=== PATIENT | male | born 1960 | race Caucasian/White ===

== ENCOUNTER 2017-11-05 09:18 | Inpatient (IN) | payer MEDICAID ==
[~2017-11-05] VITALS: Ht 172.7 cm; Wt 113.0 kg
[~2017-11-05 09:18] MED LIST: ALBU0.63 NEB; ALBU18HF; ALBU2.5V; ALBU6.7H INH; ALEN70TA5; ATOV750O; AZAT50TA9; CHOL100015 PO; DAPT500V6 IV; ERGO500017; ERTA1VIA IV; FLUC200T PO; FLUT1DIS3; FLUT1DIS5 IH; FLUT50DI; HYDR200T PO; METF10002 PO; METF500T4 PO; MORP15TA PO; MORP15TA3 PO; OXYC-307 PO; OXYC10TA6 PO; PRAV10TA2 PO; PRED5TAB; PRED5TAB PO; RANI300C PO; RANI300T; TIOT18CA; TIOT18CA INH
[2017-11-05] MEDS ORDERED: CEFTRIAXONE PMX 1GM/50ML 50 ML ONE (10:49)
[2017-11-05] MEDS ORDERED: HYDROmorphone 2 MG/ML, 1ML ONE ×2 (10:50→11:25)
[2017-11-05] MEDS: ALBUTEROL/IPRATROPIUM 2.5MG/0.5MG, 3 ML NPPB SCH ×4 (10:52→23:59)
[2017-11-05] MEDS ORDERED: ALBUTEROL/IPRATROPIUM 2.5MG/0.5MG, 3 ML ONE (10:53)
[2017-11-05] MEDS ORDERED: HYDROmorphone 2 MG/ML, 1ML IVPush PRN (11:00)
[2017-11-05] MEDS ORDERED: HYDROmorphone 1 MG/ML, 1ML IVPush PRN (11:00)
[2017-11-05 11:17] LABS: MEAN CORPUSCULAR HEMOGLOBIN 30.2 pg (27.5-34.5); MEAN CORPUSCULAR HGB CONC 32.9 g/dL (33.2-36.2); MEAN CORPUSCULAR VOLUME 91.9 fL (81-97); MEAN PLATELET VOLUME 10.4 fL (7.4-10.4); PLATELET COUNT 130 x10^3/uL (130-400); RED BLOOD COUNT 5.15 x10^6/uL (4.38-5.82); RED CELL DISTRIBUTION WIDTH 14.3 % (9.4-14.8)
[2017-11-05 11:26] LABS: ALBUMIN 2.8 g/dL (3.4-5.0); ANION GAP 9 mmol/L (5-15); CALCIUM 9.7 mg/dL (8.5-10.1); CHLORIDE 95 mmol/L (98-107)
[2017-11-05 11:30] LABS: ALANINE AMINOTRANSFERASE 24 U/L (12-78); ALKALINE PHOSPHATASE 152 U/L (45-117); BILIRUBIN,TOTAL 2.4 mg/dL (0.2-1.0); CREATININE 1.13 mg/dL (0.7-1.3); TOTAL PROTEIN 7.4 g/dL (6.4-8.2)
[2017-11-05 11:54] LABS: MD YES
[2017-11-05 11:59] LABS: BAND#(MANUAL) 0.92 x10^3/uL; BANDS%(MANUAL) 5 % (0-7); LYMPH#(MANUAL) 0.55 x10^3/uL (1-3.4); LYMPHS% (MANUAL) 3 % (22-44); MONOS#(MANUAL) 1.46 x10^3/uL (0.3-2.7); MONOS% (MANUAL) 8 % (2-9); SEG#(MANUAL) 15.37 x10^3/uL (1.8-6.8); SEGS% (MANUAL) 84 % (42-75)
[2017-11-05 12:00] LABS: <RBC MORPHOLOGY> NORMAL
[2017-11-05] MEDS ORDERED: CEFTRIAXONE PMX 1GM/50ML 50 ML IVPB ONE (12:00)
[2017-11-05] MEDS ORDERED: SODIUM CHLORIDE FLUSH 10ML SYR IVF ONE (12:00)
[2017-11-05 12:03] LABS: <PLATELET ESTIMATE> ADEQUATE; LARGE PLATELETS 1+
[2017-11-05 12:13] LABS: RAPID INFLUENZA A Negative (Negative); RAPID INFLUENZA B Negative (Negative)
[2017-11-05] MEDS ORDERED: ACETAMINOPHEN 325 MG TABLET PO PRN (13:00)
[2017-11-05] MEDS ORDERED: ACETAMINOPHEN 500 MG TABLET ONE (13:04)
[2017-11-05] MEDS ORDERED: ONDANSETRON 2MG/ML, 2ML IVPush PRN (14:00)
[2017-11-05] MEDS ORDERED: ACETAMINOPHEN 325 MG TABLET PO ONE (14:00)
[2017-11-05] MEDS ORDERED: ONDANSETRON ODT 4 MG PO PRN (14:00)
[2017-11-05 14:19] VITALS: BP 99/66
[2017-11-05] MEDS ORDERED: AZITHROMYCIN 500 MG in SODIUM CHLORIDE 0.9% 250 ML IV SCH (14:30)
[2017-11-05] MEDS ORDERED: ACETAMINOPHEN 500 MG TABLET PO ONE (14:30)
[2017-11-05] MEDS: NICOTINE 21 MG/24 HR PATCH.TD24 TD SCH (14:43)
[2017-11-05] MEDS: methylPREDNISolone SOD SUCC 125 MG/2 ML IVPush SCH ×2 (14:44→21:58)
[2017-11-05] MEDS: SODIUM CHLORIDE 0.9% 1,000 ML IV SCH (14:45)
[2017-11-05] MEDS: ENOXAPARIN 40 MG/0.4 ML SQ SCH (14:46)
[2017-11-05] MEDS: OXYcodone IR 5MG TABLET PO PRN ×2 (15:02→23:24)
[2017-11-05 18:35] VITALS: BP 116/79
[2017-11-05] MEDS: morphine SULFATE 15 MG TAB.IR PO SCH (21:59)
[2017-11-05] MEDS: INSULIN LISPRO 100 UNITS/ML, PEN SQ-INSULIN SCH (21:59)
[2017-11-06 03:08] VITALS: BP 108/68
[2017-11-06] MEDS: SODIUM CHLORIDE 0.9% 1,000 ML IV SCH (04:06)
[2017-11-06 05:30] LABS: ALANINE AMINOTRANSFERASE 21 U/L (12-78); ALBUMIN 2.2 g/dL (3.4-5.0); ANION GAP 8 mmol/L (5-15); CALCIUM 8.8 mg/dL (8.5-10.1); CHLORIDE 99 mmol/L (98-107); CHOLESTEROL, TOTAL 107 mg/dL (140-239); CREATININE 1.02 mg/dL (0.7-1.3)
[2017-11-06 05:33] LABS: ALKALINE PHOSPHATASE 141 U/L (45-117); BILIRUBIN,TOTAL 0.9 mg/dL (0.2-1.0); CHOL/HDL RATIO 4.9; HDL CHOL % 21 % (26-37); HDL CHOLESTEROL (DIRECT) 22 mg/dL (40-60); LDL CHOLESTEROL,CALCULATED 68 mg/dL (54-169); LDL/HDL RATIO 3.1 (0.5-3.0); TOTAL PROTEIN 6.8 g/dL (6.4-8.2); TRIGLYCERIDES 85 mg/dL (50-200); VLDL CHOLESTEROL 17 mg/dL (0-25)
[2017-11-06 06:01] LABS: BASOPHILS % (AUTO) 0 % (0-1); EOSINOPHILS % (AUTO) 0 % (1-7); LYMPHOCYTES # (AUTO) 0.25 x10^3/uL (1-3.4); LYMPHOCYTES % (AUTO) 2 % (22-44); MD NO; MEAN CORPUSCULAR HEMOGLOBIN 30.7 pg (27.5-34.5); MEAN CORPUSCULAR HGB CONC 33.3 g/dL (33.2-36.2); MEAN CORPUSCULAR VOLUME 92.1 fL (81-97); MEAN PLATELET VOLUME 10.6 fL (7.4-10.4); MONOCYTES # (AUTO) 0.65 x10^3/uL (0.2-0.8); MONOCYTES % (AUTO) 5 % (2-9); NEUTROPHILS # (AUTO) 12.52 x10^3/uL (1.8-6.8); NEUTROPHILS % (AUTO) 93 % (42-75); PLATELET COUNT 130 x10^3/uL (130-400); RED BLOOD COUNT 4.59 x10^6/uL (4.38-5.82); RED CELL DISTRIBUTION WIDTH 13.8 % (9.4-14.8)
[2017-11-06] MEDS: ALBUTEROL/IPRATROPIUM 2.5MG/0.5MG, 3 ML NPPB SCH ×4 (06:57→20:00)
[2017-11-06] MEDS: methylPREDNISolone SOD SUCC 125 MG/2 ML IVPush SCH ×3 (07:55→23:10)
[2017-11-06] MEDS: INSULIN LISPRO 100 UNITS/ML, PEN SQ-INSULIN SCH ×4 (07:56→21:23)
[2017-11-06] MEDS: OXYcodone IR 5MG TABLET PO PRN ×2 (07:57→17:01)
[2017-11-06] MEDS: TEMPLATE NON-FORMULARY MED. (Fluticasone/Salmeterol** (Advair 500-50 Diskus**) 1 PUFF) IH SCH (08:02)
[2017-11-06] MEDS: TEMPLATE NON-FORMULARY MED. (Tiotropium Bromide** (Spiriva**) 18 MCG) INH SCH (08:02)
[2017-11-06] MEDS: morphine SULFATE 15 MG TAB.IR PO SCH ×2 (08:02→21:23)
[2017-11-06 08:51] VITALS: BP 98/52
[2017-11-06] MEDS ORDERED: TEMPLATE NON-FORMULARY MED. (Ranitidine Hcl** 300 MG) PO SCH (09:00)
[2017-11-06] MEDS ORDERED: CEFTRIAXONE PMX 1GM/50ML 50 ML IV SCH (11:00)
[2017-11-06] MEDS: NYSTATIN 500,000 UNITS/5 ML UDC PO SCH ×3 (11:58→21:23)
[2017-11-06 13:21] VITALS: BP 89/51
[2017-11-06] MEDS ORDERED: VANCOMYCIN PER PHARMACY MC PRN (14:30)
[2017-11-06] MEDS ORDERED: PHARMACOKINETIC CONSULTATION MC ONE (14:30)
[2017-11-06] MEDS ORDERED: PHARMACOKINETIC MONITORING MC PRN (14:30)
[2017-11-06] MEDS: NICOTINE 21 MG/24 HR PATCH.TD24 TD SCH (14:44)
[2017-11-06] MEDS: ENOXAPARIN 40 MG/0.4 ML SQ SCH (15:00)
[2017-11-06] MEDS: PIPERACILLIN/TAZO/PMX 4.5GM 100 ML IV SCH ×2 (15:33→23:10)
[2017-11-06] MEDS: VANCOMYCIN 2,000 MG in SODIUM CHLORIDE 0.9% 500 ML IV SCH (16:57)
[2017-11-06 21:10] VITALS: BP 120/71
[2017-11-07 01:09] VITALS: BP 96/55
[2017-11-07] MEDS ORDERED: CALCIUM CARBONATE 500 MG TAB.CHEW PO PRN (01:30)
[2017-11-07] MEDS: OXYcodone IR 5MG TABLET PO PRN ×2 (01:49→12:43)
[2017-11-07 04:59] LABS: BASOPHILS % (AUTO) 0 % (0-1); EOSINOPHILS % (AUTO) 0 % (1-7); LYMPHOCYTES # (AUTO) 0.28 x10^3/uL (1-3.4); LYMPHOCYTES % (AUTO) 2 % (22-44); MD NO; MEAN CORPUSCULAR HEMOGLOBIN 30.6 pg (27.5-34.5); MEAN CORPUSCULAR VOLUME 92.7 fL (81-97); MEAN PLATELET VOLUME 10.6 fL (7.4-10.4); MONOCYTES # (AUTO) 0.49 x10^3/uL (0.2-0.8); MONOCYTES % (AUTO) 4 % (2-9); NEUTROPHILS # (AUTO) 10.94 x10^3/uL (1.8-6.8); NEUTROPHILS % (AUTO) 93 % (42-75); PLATELET COUNT 153 x10^3/uL (130-400); RED BLOOD COUNT 4.31 x10^6/uL (4.38-5.82); RED CELL DISTRIBUTION WIDTH 14.4 % (9.4-14.8)
[2017-11-07 05:13] LABS: ANION GAP 6 mmol/L (5-15); CALCIUM 9.5 mg/dL (8.5-10.1); CHLORIDE 99 mmol/L (98-107)
[2017-11-07 05:18] LABS: CREATININE 1.22 mg/dL (0.7-1.3)
[2017-11-07] MEDS: PIPERACILLIN/TAZO/PMX 4.5GM 100 ML IV SCH ×3 (06:28→22:34)
[2017-11-07] MEDS: NYSTATIN 500,000 UNITS/5 ML UDC PO SCH ×4 (06:28→20:50)
[2017-11-07] MEDS: ALBUTEROL/IPRATROPIUM 2.5MG/0.5MG, 3 ML NPPB SCH ×4 (07:00→20:15)
[2017-11-07] MEDS: PANTOPROZOLE 40MG TABLET PO SCH (07:30)
[2017-11-07 07:53] VITALS: BP 117/70
[2017-11-07] MEDS: methylPREDNISolone SOD SUCC 125 MG/2 ML IVPush SCH ×2 (08:53→16:26)
[2017-11-07] MEDS: INSULIN LISPRO 100 UNITS/ML, PEN SQ-INSULIN SCH ×4 (08:53→20:51)
[2017-11-07] MEDS: TEMPLATE NON-FORMULARY MED. (Fluticasone/Salmeterol** (Advair 500-50 Diskus**) 1 PUFF) IH SCH (09:00)
[2017-11-07] MEDS: TEMPLATE NON-FORMULARY MED. (Tiotropium Bromide** (Spiriva**) 18 MCG) INH SCH (09:00)
[2017-11-07] MEDS: morphine SULFATE 15 MG TAB.IR PO SCH ×2 (12:17→20:50)
[2017-11-07] MEDS: VANCOMYCIN 2,000 MG in SODIUM CHLORIDE 0.9% 500 ML IV SCH (12:44)
[2017-11-07 13:01] VITALS: BP 123/68
[2017-11-07] MEDS: NICOTINE 21 MG/24 HR PATCH.TD24 TD SCH (14:53)
[2017-11-07] MEDS: ENOXAPARIN 40 MG/0.4 ML SQ SCH (15:00)
[2017-11-07 19:42] VITALS: BP 123/76
[2017-11-07] MEDS: metFORMIN 500 MG TABLET PO SCH (20:50)
[2017-11-07] MEDS ORDERED: INSULIN LISPRO 100 UNITS/ML, PEN SQ-INSULIN ONE (23:00)
[2017-11-08 00:29] VITALS: BP 112/61
[2017-11-08] MEDS: methylPREDNISolone SOD SUCC 125 MG/2 ML IVPush SCH ×3 (00:32→17:23)
[2017-11-08] MEDS: OXYcodone IR 5MG TABLET PO PRN ×4 (00:32→20:38)
[2017-11-08 06:11] LABS: ANION GAP 8 mmol/L (5-15); CHLORIDE 100 mmol/L (98-107); CREATININE 1.09 mg/dL (0.7-1.3)
[2017-11-08 06:13] LABS: MEAN CORPUSCULAR HEMOGLOBIN 30.4 pg (27.5-34.5); MEAN CORPUSCULAR HGB CONC 32.5 g/dL (33.2-36.2); MEAN CORPUSCULAR VOLUME 93.4 fL (81-97); MEAN PLATELET VOLUME 10.3 fL (7.4-10.4); PLATELET COUNT 167 x10^3/uL (130-400); RED BLOOD COUNT 4.37 x10^6/uL (4.38-5.82); RED CELL DISTRIBUTION WIDTH 14.9 % (9.4-14.8)
[2017-11-08] MEDS: NYSTATIN 500,000 UNITS/5 ML UDC PO SCH ×4 (06:20→20:37)
[2017-11-08] MEDS: PIPERACILLIN/TAZO/PMX 4.5GM 100 ML IV SCH ×3 (06:21→23:01)
[2017-11-08 06:35] LABS: BASOPHILS % (AUTO) 0 % (0-1); EOSINOPHILS # (AUTO) 0.02 x10^3/uL (0-0.4); EOSINOPHILS % (AUTO) 0 % (1-7); LYMPHOCYTES # (AUTO) 0.29 x10^3/uL (1-3.4); LYMPHOCYTES % (AUTO) 3 % (22-44); MD SCAN; MONOCYTES # (AUTO) 0.04 x10^3/uL (0.2-0.8); MONOCYTES % (AUTO) 0 % (2-9); NEUTROPHILS # (AUTO) 8.48 x10^3/uL (1.8-6.8); NEUTROPHILS % (AUTO) 96 % (42-75)
[2017-11-08 07:30] VITALS: BP 127/72
[2017-11-08] MEDS: TEMPLATE NON-FORMULARY MED. (Fluticasone/Salmeterol** (Advair 500-50 Diskus**) 1 PUFF) IH SCH (08:03)
[2017-11-08] MEDS: TEMPLATE NON-FORMULARY MED. (Tiotropium Bromide** (Spiriva**) 18 MCG) INH SCH (08:04)
[2017-11-08] MEDS: ALBUTEROL/IPRATROPIUM 2.5MG/0.5MG, 3 ML NPPB SCH ×4 (08:23→20:09)
[2017-11-08] MEDS: PANTOPROZOLE 40MG TABLET PO SCH (08:45)
[2017-11-08] MEDS: INSULIN LISPRO 100 UNITS/ML, PEN SQ-INSULIN SCH ×4 (08:45→20:39)
[2017-11-08] MEDS: morphine SULFATE 15 MG TAB.IR PO SCH ×2 (08:45→20:38)
[2017-11-08] MEDS: metFORMIN 500 MG TABLET PO SCH ×2 (08:45→20:38)
[2017-11-08] MEDS: ENOXAPARIN 40 MG/0.4 ML SQ SCH (13:22)
[2017-11-08] MEDS: NICOTINE 21 MG/24 HR PATCH.TD24 TD SCH (13:38)
[2017-11-08 15:35] VITALS: BP 108/67
[2017-11-08 19:23] VITALS: BP 117/66
[2017-11-09] MEDS: methylPREDNISolone SOD SUCC 125 MG/2 ML IVPush SCH ×2 (01:11→08:00)
[2017-11-09 01:25] VITALS: BP 130/74
[2017-11-09] MEDS: OXYcodone IR 5MG TABLET PO PRN ×3 (06:10→21:52)
[2017-11-09] MEDS: NYSTATIN 500,000 UNITS/5 ML UDC PO SCH ×4 (06:10→21:39)
[2017-11-09] MEDS: PIPERACILLIN/TAZO/PMX 4.5GM 100 ML IV SCH (06:10)
[2017-11-09] MEDS: ALBUTEROL/IPRATROPIUM 2.5MG/0.5MG, 3 ML NPPB SCH ×4 (06:30→20:19)
[2017-11-09 06:53] VITALS: BP 137/71
[2017-11-09] MEDS: INSULIN LISPRO 100 UNITS/ML, PEN SQ-INSULIN SCH ×5 (08:16→21:00)
[2017-11-09] MEDS: PANTOPROZOLE 40MG TABLET PO SCH (08:16)
[2017-11-09 08:52] LABS: BASOPHILS # (AUTO) 0.18 x10^3/uL (0-0.1); BASOPHILS % (AUTO) 2 % (0-1); EOSINOPHILS % (AUTO) 0 % (1-7); LYMPHOCYTES # (AUTO) 0.36 x10^3/uL (1-3.4); LYMPHOCYTES % (AUTO) 4 % (22-44); MD NO; MEAN CORPUSCULAR HEMOGLOBIN 30.9 pg (27.5-34.5); MEAN CORPUSCULAR HGB CONC 33.4 g/dL (33.2-36.2); MEAN CORPUSCULAR VOLUME 92.5 fL (81-97); MEAN PLATELET VOLUME 9.7 fL (7.4-10.4); MONOCYTES # (AUTO) 0.25 x10^3/uL (0.2-0.8); MONOCYTES % (AUTO) 3 % (2-9); NEUTROPHILS # (AUTO) 9.18 x10^3/uL (1.8-6.8); NEUTROPHILS % (AUTO) 92 % (42-75); PLATELET COUNT 178 x10^3/uL (130-400); RED BLOOD COUNT 4.56 x10^6/uL (4.38-5.82); RED CELL DISTRIBUTION WIDTH 15.3 % (9.4-14.8)
[2017-11-09] MEDS: TEMPLATE NON-FORMULARY MED. (Fluticasone/Salmeterol** (Advair 500-50 Diskus**) 1 PUFF) IH SCH (09:00)
[2017-11-09] MEDS: TEMPLATE NON-FORMULARY MED. (Tiotropium Bromide** (Spiriva**) 18 MCG) INH SCH (09:00)
[2017-11-09 09:02] LABS: ALBUMIN 2.5 g/dL (3.4-5.0); ANION GAP 8 mmol/L (5-15); CALCIUM 8.3 mg/dL (8.5-10.1); CHLORIDE 101 mmol/L (98-107); CREATININE 1.23 mg/dL (0.7-1.3)
[2017-11-09] MEDS: morphine SULFATE 15 MG TAB.IR PO SCH ×2 (09:49→21:00)
[2017-11-09] MEDS: metFORMIN 500 MG TABLET PO SCH (09:50)
[2017-11-09] MEDS: CEFTRIAXONE PMX 2GM/50ML 50 ML IV SCH (09:50)
[2017-11-09] MEDS: INSULIN GLARGINE 100 UNITS/ML, PEN SQ-INSULIN SCH ×2 (12:19→21:52)
[2017-11-09 13:40] VITALS: BP 122/66
[2017-11-09] MEDS: NICOTINE 21 MG/24 HR PATCH.TD24 TD SCH (14:33)
[2017-11-09] MEDS: ENOXAPARIN 40 MG/0.4 ML SQ SCH (15:00)
[2017-11-09 16:06] LABS: HEMOGLOBIN A1C 7.7 % (4.2-6.3)
[2017-11-09 18:59] VITALS: BP 106/56
[2017-11-10 00:22] VITALS: BP 94/52
[2017-11-10] MEDS: OXYcodone IR 5MG TABLET PO PRN ×2 (05:25→19:49)
[2017-11-10] MEDS: NYSTATIN 500,000 UNITS/5 ML UDC PO SCH ×4 (05:25→19:49)
[2017-11-10 05:34] LABS: BASOPHILS # (AUTO) 0.02 x10^3/uL (0-0.1); BASOPHILS % (AUTO) 0 % (0-1); EOSINOPHILS # (AUTO) 0.08 x10^3/uL (0-0.4); EOSINOPHILS % (AUTO) 1 % (1-7); LYMPHOCYTES # (AUTO) 1.31 x10^3/uL (1-3.4); LYMPHOCYTES % (AUTO) 14 % (22-44); MD NO; MEAN CORPUSCULAR HEMOGLOBIN 30.6 pg (27.5-34.5); MEAN CORPUSCULAR HGB CONC 33.1 g/dL (33.2-36.2); MEAN CORPUSCULAR VOLUME 92.5 fL (81-97); MEAN PLATELET VOLUME 9.5 fL (7.4-10.4); MONOCYTES # (AUTO) 0.05 x10^3/uL (0.2-0.8); MONOCYTES % (AUTO) 1 % (2-9); NEUTROPHILS # (AUTO) 8.25 x10^3/uL (1.8-6.8); NEUTROPHILS % (AUTO) 85 % (42-75); PLATELET COUNT 191 x10^3/uL (130-400); RED BLOOD COUNT 4.36 x10^6/uL (4.38-5.82); RED CELL DISTRIBUTION WIDTH 14.9 % (9.4-14.8)
[2017-11-10 05:56] LABS: CHLORIDE 102 mmol/L (98-107)
[2017-11-10 06:21] LABS: ALANINE AMINOTRANSFERASE 52 U/L (12-78); ALBUMIN 2.3 g/dL (3.4-5.0); ALKALINE PHOSPHATASE 94 U/L (45-117); ANION GAP 6 mmol/L (5-15); BILIRUBIN,TOTAL 0.5 mg/dL (0.2-1.0); CALCIUM 8.1 mg/dL (8.5-10.1); CREATININE 0.94 mg/dL (0.7-1.3); TOTAL PROTEIN 5.3 g/dL (6.4-8.2)
[2017-11-10] MEDS: INSULIN LISPRO 100 UNITS/ML, PEN SQ-INSULIN SCH ×4 (07:00→19:59)
[2017-11-10 07:16] VITALS: BP 112/68
[2017-11-10] MEDS: ALBUTEROL/IPRATROPIUM 2.5MG/0.5MG, 3 ML NPPB SCH ×4 (07:25→18:59)
[2017-11-10] MEDS: PANTOPROZOLE 40MG TABLET PO SCH (08:04)
[2017-11-10] MEDS: TEMPLATE NON-FORMULARY MED. (Fluticasone/Salmeterol** (Advair 500-50 Diskus**) 1 PUFF) IH SCH (08:05)
[2017-11-10] MEDS: morphine SULFATE 15 MG TAB.IR PO SCH ×2 (08:05→19:49)
[2017-11-10] MEDS: TEMPLATE NON-FORMULARY MED. (Tiotropium Bromide** (Spiriva**) 18 MCG) INH SCH (08:05)
[2017-11-10] MEDS: CEFTRIAXONE PMX 2GM/50ML 50 ML IV SCH (08:05)
[2017-11-10 13:29] VITALS: BP 100/61
[2017-11-10] MEDS: ENOXAPARIN 40 MG/0.4 ML SQ SCH (15:00)
[2017-11-10] MEDS: NICOTINE 21 MG/24 HR PATCH.TD24 TD SCH (16:14)
[2017-11-10 19:37] VITALS: BP 120/74
[2017-11-10] MEDS: INSULIN GLARGINE 100 UNITS/ML, PEN SQ-INSULIN SCH (19:59)
[2017-11-11 01:27] VITALS: BP 100/58
[2017-11-11] MEDS: OXYcodone IR 5MG TABLET PO PRN ×3 (01:35→20:44)
[2017-11-11 04:36] LABS: BASOPHILS # (AUTO) 0.01 x10^3/uL (0-0.1); BASOPHILS % (AUTO) 0 % (0-1); EOSINOPHILS # (AUTO) 0.13 x10^3/uL (0-0.4); EOSINOPHILS % (AUTO) 1 % (1-7); LYMPHOCYTES # (AUTO) 1.43 x10^3/uL (1-3.4); LYMPHOCYTES % (AUTO) 12 % (22-44); MD NO; MEAN CORPUSCULAR HEMOGLOBIN 30.3 pg (27.5-34.5); MEAN CORPUSCULAR HGB CONC 32.5 g/dL (33.2-36.2); MEAN CORPUSCULAR VOLUME 93.3 fL (81-97); MEAN PLATELET VOLUME 9.1 fL (7.4-10.4); MONOCYTES # (AUTO) 0.04 x10^3/uL (0.2-0.8); MONOCYTES % (AUTO) 0 % (2-9); NEUTROPHILS # (AUTO) 10.29 x10^3/uL (1.8-6.8); NEUTROPHILS % (AUTO) 87 % (42-75); PLATELET COUNT 208 x10^3/uL (130-400); RED BLOOD COUNT 4.44 x10^6/uL (4.38-5.82); RED CELL DISTRIBUTION WIDTH 14.7 % (9.4-14.8)
[2017-11-11 04:49] LABS: ALBUMIN 2.2 g/dL (3.4-5.0); ANION GAP 4 mmol/L (5-15); CALCIUM 7.9 mg/dL (8.5-10.1); CHLORIDE 104 mmol/L (98-107)
[2017-11-11 04:54] LABS: ALANINE AMINOTRANSFERASE 37 U/L (12-78); ALKALINE PHOSPHATASE 83 U/L (45-117); BILIRUBIN,TOTAL 0.4 mg/dL (0.2-1.0); CREATININE 0.81 mg/dL (0.7-1.3); TOTAL PROTEIN 5.2 g/dL (6.4-8.2)
[2017-11-11] MEDS: NYSTATIN 500,000 UNITS/5 ML UDC PO SCH ×4 (05:58→20:44)
[2017-11-11] MEDS: ALBUTEROL/IPRATROPIUM 2.5MG/0.5MG, 3 ML NPPB SCH ×4 (06:55→19:03)
[2017-11-11] MEDS: INSULIN LISPRO 100 UNITS/ML, PEN SQ-INSULIN SCH ×4 (07:00→20:57)
[2017-11-11] MEDS: CEFTRIAXONE PMX 2GM/50ML 50 ML IV SCH (07:59)
[2017-11-11] MEDS: PANTOPROZOLE 40MG TABLET PO SCH (07:59)
[2017-11-11 08:49] VITALS: BP 104/60
[2017-11-11] MEDS: TEMPLATE NON-FORMULARY MED. (Fluticasone/Salmeterol** (Advair 500-50 Diskus**) 1 PUFF) IH SCH (09:00)
[2017-11-11] MEDS: TEMPLATE NON-FORMULARY MED. (Tiotropium Bromide** (Spiriva**) 18 MCG) INH SCH (09:00)
[2017-11-11] MEDS: morphine SULFATE 15 MG TAB.IR PO SCH ×2 (09:02→20:44)
[2017-11-11 13:29] VITALS: BP 126/73
[2017-11-11] MEDS: ENOXAPARIN 40 MG/0.4 ML SQ SCH (15:00)
[2017-11-11] MEDS: NICOTINE 21 MG/24 HR PATCH.TD24 TD SCH (15:14)
[2017-11-11 19:46] VITALS: BP 109/64
[2017-11-11] MEDS: INSULIN GLARGINE 100 UNITS/ML, PEN SQ-INSULIN SCH (20:57)
[2017-11-12 02:00] VITALS: BP 101/63
[2017-11-12] MEDS: OXYcodone IR 5MG TABLET PO PRN (05:35)
[2017-11-12] MEDS: NYSTATIN 500,000 UNITS/5 ML UDC PO SCH (05:35)
[2017-11-12 06:13] LABS: BASOPHILS # (AUTO) 0.01 x10^3/uL (0-0.1); BASOPHILS % (AUTO) 0 % (0-1); EOSINOPHILS # (AUTO) 0.16 x10^3/uL (0-0.4); EOSINOPHILS % (AUTO) 1 % (1-7); LYMPHOCYTES # (AUTO) 1.53 x10^3/uL (1-3.4); LYMPHOCYTES % (AUTO) 12 % (22-44); MD NO; MEAN CORPUSCULAR HEMOGLOBIN 30.5 pg (27.5-34.5); MEAN CORPUSCULAR HGB CONC 32.9 g/dL (33.2-36.2); MEAN CORPUSCULAR VOLUME 92.7 fL (81-97); MEAN PLATELET VOLUME 9.1 fL (7.4-10.4); MONOCYTES % (AUTO) 2 % (2-9); NEUTROPHILS % (AUTO) 84 % (42-75); PLATELET COUNT 203 x10^3/uL (130-400); RED BLOOD COUNT 4.43 x10^6/uL (4.38-5.82); RED CELL DISTRIBUTION WIDTH 14.8 % (9.4-14.8)
[2017-11-12 06:16] LABS: ALBUMIN 2.4 g/dL (3.4-5.0); ANION GAP 5 mmol/L (5-15); CALCIUM 7.8 mg/dL (8.5-10.1); CHLORIDE 101 mmol/L (98-107)
[2017-11-12 06:19] LABS: ALANINE AMINOTRANSFERASE 35 U/L (12-78); ALKALINE PHOSPHATASE 82 U/L (45-117); BILIRUBIN,TOTAL 1.1 mg/dL (0.2-1.0); CREATININE 0.83 mg/dL (0.7-1.3); TOTAL PROTEIN 5.5 g/dL (6.4-8.2)
[2017-11-12] MEDS: ALBUTEROL/IPRATROPIUM 2.5MG/0.5MG, 3 ML NPPB SCH ×2 (06:50→09:33)
[2017-11-12 06:58] VITALS: BP 105/70
[2017-11-12] MEDS: CEFTRIAXONE PMX 2GM/50ML 50 ML IV SCH (09:18)
[2017-11-12] MEDS: PANTOPROZOLE 40MG TABLET PO SCH (09:19)
[2017-11-12] MEDS: morphine SULFATE 15 MG TAB.IR PO SCH (09:20)
[2017-11-12] MEDS: INSULIN LISPRO 100 UNITS/ML, PEN SQ-INSULIN SCH (09:27)
[2017-11-12] MEDS ORDERED: ALBUTEROL/IPRATROPIUM 2.5MG/0.5MG, 3 ML NPPB PRN (11:00)
[2017-11-13] MEDS ORDERED: ESOM20CA PO (14:48)
== END 2017-11-12 12:43 | disposition home or self-care (01) | DRG 871 ==
LOC: ED 11:58 → EDIP 11:59 → ED 12:17 → 3NE 13:52
PROVIDERS: ADMIT Internal Medicine; ATTEND Internal Medicine
PROC: 02HV33Z Insertion of Infusion Device into Superior Vena Cava, Percutaneous Approach (ICD-10-PCS; principal; 2017-11-11)
PROC: B5181ZA Fluoroscopy of Superior Vena Cava using Low Osmolar Contrast, Guidance (ICD-10-PCS; 2017-11-11)
PROC: B548ZZA Ultrasonography of Superior Vena Cava, Guidance (ICD-10-PCS; 2017-11-11)
DX: A41.9 Sepsis, unspecified organism (principal); E43 Unspecified severe protein-calorie malnutrition; J96.21 Acute and chronic respiratory failure with hypoxia; I27.20 Pulmonary hypertension, unspecified; J15.9 Unspecified bacterial pneumonia; B37.0 Candidal stomatitis; E87.1 Hypo-osmolality and hyponatremia; E66.01 Morbid (severe) obesity due to excess calories; F11.20 Opioid dependence, uncomplicated; I50.32 Chronic diastolic (congestive) heart failure; J44.0 Chronic obstructive pulmonary disease with (acute) lower respiratory infection; J44.1 Chronic obstructive pulmonary disease with (acute) exacerbation; M81.0 Age-related osteoporosis without current pathological fracture; E11.9 Type 2 diabetes mellitus without complications; Z68.37 Body mass index [BMI] 37.0-37.9, adult; F17.210 Nicotine dependence, cigarettes, uncomplicated; G47.33 Obstructive sleep apnea (adult) (pediatric); G89.29 Other chronic pain; M06.9 Rheumatoid arthritis, unspecified; Z79.84 Long term (current) use of oral hypoglycemic drugs; Z99.81 Dependence on supplemental oxygen; Z88.2 Allergy status to sulfonamides; Z88.8 Allergy status to other drugs, medicaments and biological substances
CPT/HCPCS: 36415; 36569; 71045; 76937; 77001; 80048; 80053; 80061; 82040; 82947; 82962; 83036; 83605; 83735; 84100; 84145; 85025; 87040; 87077; 87181; 87400; 93005; 93306; 94640; 96365; 96366; 96375; 96376; J0456; J0696; J1170; J2543; J3370; J7620; C1751; J1815; J2930; J7030; J7040; J7050

== ENCOUNTER 2018-07-08 12:06 | Emergency (ER) | payer MEDICAID ==
[~2018-07-08] VITALS: Ht 170.2 cm; Wt 101.2 kg
[~2018-07-08 12:06] MED LIST changes: +ESOM20CA PO; -HYDR200T PO; +HYDR200T72 PO; +METF500T17 PO; -METF500T4 PO
[2018-07-08] MEDS ORDERED: FOLI0.4T2 PO (12:46)
[2018-07-08] MEDS ORDERED: EMPA10TA PO (12:46)
[2018-07-08] MEDS ORDERED: PRAV10TA2 PO (12:46)
[2018-07-08] MEDS ORDERED: BACL20TA PO (12:46)
[2018-07-08] MEDS ORDERED: HYDR200T72 PO (12:46)
[2018-07-08] MEDS ORDERED: FURO20TA3 PO (12:46)
[2018-07-08] MEDS ORDERED: BUPR150T6 PO (12:46)
[2018-07-08] MEDS ORDERED: GABA600T2 PO (12:46)
[2018-07-08] MEDS ORDERED: SPIR25TA5 PO (12:46)
[2018-07-08] MEDS ORDERED: ESOM20CA PO (12:46)
[2018-07-08] MEDS ORDERED: CEFAZOLIN PMX 1GM/50ML 50 ML ONE (12:48)
[2018-07-08] MEDS ORDERED: SODIUM CHLORIDE 0.9% 1,000ML IVBOLUS ONE (13:00)
[2018-07-08] MEDS ORDERED: CEFAZOLIN PMX 1GM/50ML 50 ML IV ONE (13:00)
[2018-07-08] MEDS ORDERED: ONDANSETRON 2MG/ML, 2ML ONE (13:20)
[2018-07-08] MEDS ORDERED: MORPHINE SULFATE 4 MG/ML, 1ML ONE (13:20)
[2018-07-08 13:29] LABS: ANION GAP 8 mmol/L (5-15); CALCIUM 9.2 mg/dL (8.5-10.1); CHLORIDE 103 mmol/L (98-107); CREATININE 1.43 mg/dL (0.7-1.3)
[2018-07-08 13:30] LABS: ALANINE AMINOTRANSFERASE 32 U/L (12-78); ALBUMIN 4.3 g/dL (3.4-5.0)
[2018-07-08] MEDS ORDERED: ONDANSETRON 2MG/ML, 2ML IVPush ONE (13:30)
[2018-07-08] MEDS ORDERED: MORPHINE SULFATE 4 MG/ML, 1ML IVPush ONE (13:30)
[2018-07-08 13:31] LABS: MEAN CORPUSCULAR HEMOGLOBIN 30.9 pg (27.5-34.5); MEAN CORPUSCULAR HGB CONC 33.2 g/dL (33.2-36.2); RED BLOOD COUNT 6.21 x10^6/uL (4.38-5.82); RED CELL DISTRIBUTION WIDTH 15.9 % (9.4-14.8)
[2018-07-08 13:32] LABS: ALKALINE PHOSPHATASE 68 U/L (45-117); BILIRUBIN,TOTAL 0.5 mg/dL (0.2-1.0)
[2018-07-08] MEDS ORDERED: SODIUM CHLORIDE FLUSH 10ML SYR IVF ONE (14:00)
[2018-07-08 14:16] LABS: MD YES; MEAN PLATELET VOLUME 10.5 fL (7.4-10.4); PLATELET COUNT 75 x10^3/uL (130-400)
[2018-07-08 14:19] LABS: BAND#(MANUAL) 0.93 x10^3/uL; BANDS%(MANUAL) 16 % (0-7); LYMPH#(MANUAL) 0.35 x10^3/uL (1-3.4); LYMPHS% (MANUAL) 6 % (22-44); MONOS#(MANUAL) 0.17 x10^3/uL (0.3-2.7); MONOS% (MANUAL) 3 % (2-9); SEG#(MANUAL) 4.35 x10^3/uL (1.8-6.8); SEGS% (MANUAL) 75 % (42-75)
[2018-07-08 14:20] LABS: <PLATELET ESTIMATE> DECREASED; <RBC MORPHOLOGY> NORMAL; LARGE PLATELETS 1+
[2018-07-08 15:14] VITALS: BP 104/68
== END 2018-07-08 15:28 | disposition home or self-care (01) ==
LOC: ED 14:42
DX: L03.116 Cellulitis of left lower limb (principal); F32.9 Major depressive disorder, single episode, unspecified; E78.5 Hyperlipidemia, unspecified; J44.9 Chronic obstructive pulmonary disease, unspecified; E11.9 Type 2 diabetes mellitus without complications; I50.9 Heart failure, unspecified; M06.9 Rheumatoid arthritis, unspecified; Z88.0 Allergy status to penicillin; Z88.2 Allergy status to sulfonamides
CPT/HCPCS: 36415; 80053; 85025; 93922; 96365; 96366; 96375; 99285; J0690; J2405; J7030

== ENCOUNTER 2019-10-16 18:52 | Inpatient (IN) | payer MEDICAID ==
[~2019-10-16] VITALS: Ht 167.6 cm; Wt 97.5 kg
[~2019-10-16 18:52] MED LIST changes: -ALBU6.7H INH; +ALBU6.7H8 INH; -ALEN70TA5; +ALEN70TA6; +BACL20TA PO; +BUPR150T6 PO; +EMPA10TA PO; +FOLI0.4T2 PO; +FURO20TA3 PO; +GABA600T7 PO; +MORP-29 PO; -MORP15TA3 PO; +SPIR25TA5 PO
--- NOTE | 2019-10-16 19:15 | NUR ---
THIS IS A 58 YO MALE COMING IN FOR FELDMAN AND COUGH X5 DAYS WITH INCREASE WORK OF BREATHING, WITH STATES CHILLS AND SWEATING. PATIENT STATES "TWO WEEKS AGO I STARTED A NEW INFUSION FOR MY BONES, AND I JUST HAD THE SECOND INFUSION ON THE . AND 5 DAYS AGO I STARTED GETTING HEADACHES AND THIS COUGH. I COUGHED UP A LITTLE BLOOD/BROWN STUFF". PATIENT DENIES N/V, DENIES CP. C/O "SORE LUNGS FROM COUGHING", WITH PAIN RATED 8/10. LUNG SOUNDS ARE DIMINSHED THROUGHOUT, NO CRACKLES NOTED. PATIENT HAS HX COPD, WEARS 4L AT HOME. PLACED ON 6L IN [facility]. SPO2 AND BP MONITORING IN PLACE. PATIENT SWITCHED TO OXYMASK AT 6L, CURRENTLY AT 97%. VSS. CALL LIGHT IN REACH.
[2019-10-16] MEDS ORDERED: methylPREDNISolone SOD SUCC 125 MG/2 ML IVPush STA (19:16)
--- NOTE | 2019-10-16 19:16 | NUR ---
PLACED ON REHABILITATION TECHNICIAN, SINUS TACHY NOTED
[2019-10-16] MEDS ORDERED: MAGNESIUM SULFATE PMX 2GM/50ML 50 ML ONE (19:22)
[2019-10-16] MEDS ORDERED: methylPREDNISolone SOD SUCC 125 MG/2 ML ONE (19:22)
[2019-10-16] MEDS ORDERED: ALBUTEROL/IPRATROPIUM 2.5MG/0.5MG, 3 ML ONE (19:25)
[2019-10-16] MEDS ORDERED: SODIUM CHLORIDE FLUSH 10ML SYR IVF ONE (19:30)
[2019-10-16] MEDS ORDERED: ALBUTEROL/IPRATROPIUM 2.5MG/0.5MG, 3 ML NPPB PRN (19:30)
[2019-10-16] MEDS ORDERED: SODIUM CHLORIDE 0.9% 1,000ML IVBOLUS ONE (19:30)
[2019-10-16] MEDS ORDERED: MAGNESIUM SULFATE PMX 2GM/50ML 50 ML IVPB ONE (19:30)
--- NOTE | 2019-10-16 19:30 | NUR ---
PIV PLACED, PATIENT MEDICATED PER EMAR, TOLERATED WELL. RT IN ROOM TO PLACE PT ON BIPAP, SCREENER PERFUMER IN ROOM. BLOOD CULTURES X2 DRAWN.
--- NOTE | 2019-10-16 19:31 | NUR ---
PT ON OPTIFLOW, NOT BIPAP
[2019-10-16 19:39] LABS: MEAN CORPUSCULAR HEMOGLOBIN 30.6 pg (27.5-34.5); MEAN CORPUSCULAR HGB CONC 32.6 g/dL (33.2-36.2); MEAN CORPUSCULAR VOLUME 93.9 fL (81-97); MEAN PLATELET VOLUME 9.6 fL (7.4-10.4); PLATELET COUNT 137 x10^3/uL (130-400); RED BLOOD COUNT 5.35 x10^6/uL (4.38-5.82)
[2019-10-16 19:50] LABS: ALANINE AMINOTRANSFERASE 31 U/L (12-78); ALBUMIN 3.1 g/dL (3.4-5.0); ANION GAP 7 mmol/L (5-15); CALCIUM 8.5 mg/dL (8.5-10.1); CHLORIDE 98 mmol/L (98-107)
[2019-10-16 19:55] LABS: ALKALINE PHOSPHATASE 128 U/L (45-117); BASOPHILS # (AUTO) 0.01 x10^3/uL (0-0.1); BASOPHILS % (AUTO) 0 % (0-1); CREATININE 1.15 mg/dL (0.7-1.3); EOSINOPHILS # (AUTO) 0.02 x10^3/uL (0-0.4); EOSINOPHILS % (AUTO) 0 % (1-7); LYMPHOCYTES # (AUTO) 0.76 x10^3/uL (1-3.4); LYMPHOCYTES % (AUTO) 5 % (22-44); MD SCAN; MONOCYTES % (AUTO) 9 % (2-9); NEUTROPHILS % (AUTO) 86 % (42-75); TOTAL PROTEIN 7.1 g/dL (6.4-8.2); TROPONIN I 0.025 ng/mL (0.000-0.045)
[2019-10-16] MEDS ORDERED: MORP30TA PO (20:02)
[2019-10-16] MEDS ORDERED: PRED5TAB PO (20:07)
[2019-10-16] MEDS ORDERED: BACL20TA PO (20:07)
[2019-10-16] MEDS ORDERED: POTA20TA89 PO (20:08)
[2019-10-16 20:09] LABS: RAPID INFLUENZA A Negative (Negative); RAPID INFLUENZA B Negative (Negative)
[2019-10-16] MEDS ORDERED: SODIUM CHLORIDE 0.9% 1,000ML IV ONE (20:15)
[2019-10-16] MEDS ORDERED: ONDANSETRON 2MG/ML, 2ML ONE (20:23)
[2019-10-16] MEDS ORDERED: MORPHINE SULFATE 4 MG/ML, 1ML ONE ×2 (20:24→21:19)
[2019-10-16] MEDS: MORPHINE SULFATE 4 MG/ML, 1ML IVPush PRN ×2 (20:28→21:24)
[2019-10-16] MEDS ORDERED: CEFTRIAXONE PMX 1GM/50ML 50 ML IV ONE ×2 (20:30)
[2019-10-16] MEDS ORDERED: AZITHROMYCIN 500 MG in SODIUM CHLORIDE 0.9% 250 ML IV ONE (20:30)
[2019-10-16] MEDS ORDERED: ONDANSETRON 2MG/ML, 2ML IVPush ONE (20:30)
--- NOTE | 2019-10-16 20:36 | NUR ---
BLOOD CULTURES X2 DRAWN PRIOR TO ABX ADMIN. PATIENT GIVEN FIRST ABX, MORPHINE AND ZOFRAN AT THIS TIME. TOLERATED WELL.
--- NOTE | 2019-10-16 20:52 | NUR ---
CALL PLACED TO HOUSEKEEPING TO GET HOSPITAL BED
--- NOTE | 2019-10-16 21:10 | NUR ---
PATIENT CONTINUALLY TAKING OPTIFLOW CANNULA OFF AND REFUSING, WANTING OXYMASK. MD, RT, AND PA TO ROOM TO DISCUSS NEED FOR OPTIFLOW, DISPO FOR PLAN OF CARE. PATIENT WANTING TO LEAVE. MD VAZQUEZ EDUCATED PATIENT ON OUTCOMES IF PATIENT WERE TO LEAVE. PATIENT AGREEING TO GO BACK ON OPTIFLOW.
[2019-10-16] MEDS ORDERED: CEFTRIAXONE PMX 1GM/50ML 50 ML ONE (21:18)
[2019-10-16] MEDS ORDERED: ACETAMINOPHEN 325 MG TABLET PO PRN (21:30)
[2019-10-16] MEDS ORDERED: POLYETHYLENE GLYCOL 17 GM PACKET PO PRN (21:30)
[2019-10-16] MEDS ORDERED: BISACODYL 10 MG SUPP PR PRN (21:30)
[2019-10-16] MEDS ORDERED: GUAIFENESIN/DM 200-20MG, 10ML UDC PO PRN (21:30)
[2019-10-16] MEDS ORDERED: metFORMIN 500 MG TABLET PO SCH (21:30)
[2019-10-16] MEDS: AZITHROMYCIN 500 MG in SODIUM CHLORIDE 0.9% 250 ML IV SCH (21:30)
[2019-10-16] MEDS ORDERED: ONDANSETRON ODT 4 MG PO PRN (21:30)
--- NOTE | 2019-10-16 21:36 | NUR ---
ZITHROMAX COMPLETED, STARTED ROCEPHIN. SECOND LITER IVF STARTED. SECOND DOSE OF MORPHINE GIVEN PER MD ORDERS AND MAR PROTOCOL FOR PAIN
--- NOTE | 2019-10-16 21:37 | NUR ---
PATIENT TAKING OPTIFLOW CANNULA OUT OF NOSE DUE TO "IT DOESN'T FEEL GOOD". RE-EDUCATED NEED FOR PATIENT TO KEEP OPTIFLOW CANNULA IN NOSTRILS. PATIENT PLACED BACK IN NOSE
--- NOTE | 2019-10-16 22:00 | NUR ---
PATIENT REFUSING OPTIFLOW, TAKING IT OUT OF NOSE. STATES "IF I HAVE TO KEEP THIS THING IN MY NOSE I'M LEAVING NOW". DISCUSSED WITH MD VAZQUEZ. STATES WE WILL SWITCH PATIENT TO NO REBREATHER AND ADMIT TO ICU
--- NOTE | 2019-10-16 22:05 | NUR ---
PATIENT SWITCHED TO NON REBREATHER DUE TO PATIENT REFUSING OPTIFLOW. BIPAP CONTRAINDICATED DUE TO DX OF PNEUMONIA. VSS, NAD, CALL LIGHT IN REACH, PATIENT IN HOSPITAL BED. FAMILY IN ROOM
[2019-10-16] MEDS ORDERED: NICOTINE 21 MG/24 HR PATCH.TD24 ONE (22:36)
[2019-10-16] MEDS ORDERED: HEPARIN 5,000 UNITS/ML, 1ML ONE (22:36)
[2019-10-16] MEDS: NICOTINE 21 MG/24 HR PATCH.TD24 TD SCH (22:39)
[2019-10-16] MEDS: HEPARIN 5,000 UNITS/ML, 1ML SQ SCH (22:40)
--- NOTE | 2019-10-16 22:46 | NUR ---
REPORT GIVEN TO JANIA PUENTE. PLAN OF CARE DISCUSSED. RN AND TECH TO TRANSPORT PATIENT UP
[2019-10-16] MEDS ORDERED: BUDESONIDE 0.5 MG/2 ML INHA NPPB SCH (23:30)
[2019-10-16] MEDS ORDERED: ALBUTEROL/IPRATROPIUM 2.5MG/0.5MG, 3 ML NPPB SCH (23:30)
[2019-10-16] MEDS: CEFTRIAXONE PMX 1GM/50ML 50 ML IV SCH (23:46)
[2019-10-16] MEDS: SODIUM CHLORIDE FLUSH 10ML SYR IVF SCH (23:50)
[2019-10-17] MEDS: GABAPENTIN 300 MG CAPSULE PO SCH ×3 (00:07→21:31)
[2019-10-17] MEDS: PRAVASTATIN 20 MG TABLET PO SCH ×2 (00:08→21:31)
[2019-10-17] MEDS: SPIRONOLACTONE 25 MG TABLET PO SCH ×3 (00:08→21:31)
[2019-10-17] MEDS: ALBUTEROL/IPRATROPIUM 2.5MG/0.5MG, 3 ML NPPB SCH ×4 (02:59→21:00)
[2019-10-17] MEDS ORDERED: ALBUTEROL/IPRATROPIUM 2.5MG/0.5MG, 3 ML NPPB PRN (03:00)
[2019-10-17 04:00] VITALS: BP 94/56
[2019-10-17 04:43] LABS: MEAN CORPUSCULAR HEMOGLOBIN 30.7 pg (27.5-34.5); MEAN CORPUSCULAR HGB CONC 32.9 g/dL (33.2-36.2); MEAN CORPUSCULAR VOLUME 93.3 fL (81-97); PLATELET COUNT 127 x10^3/uL (130-400); RED BLOOD COUNT 5.03 x10^6/uL (4.38-5.82); RED CELL DISTRIBUTION WIDTH 13.9 % (9.4-14.8)
[2019-10-17 04:52] LABS: ALBUMIN 2.7 g/dL (3.4-5.0); ANION GAP 6 mmol/L (5-15); CALCIUM 8.1 mg/dL (8.5-10.1); CHLORIDE 101 mmol/L (98-107)
[2019-10-17 04:56] LABS: BASOPHILS % (AUTO) 0 % (0-1); EOSINOPHILS # (AUTO) 0.09 x10^3/uL (0-0.4); EOSINOPHILS % (AUTO) 1 % (1-7); LYMPHOCYTES # (AUTO) 0.46 x10^3/uL (1-3.4); LYMPHOCYTES % (AUTO) 4 % (22-44); MD SCAN; MONOCYTES # (AUTO) 0.22 x10^3/uL (0.2-0.8); MONOCYTES % (AUTO) 2 % (2-9); NEUTROPHILS # (AUTO) 9.84 x10^3/uL (1.8-6.8); NEUTROPHILS % (AUTO) 93 % (42-75)
[2019-10-17 04:57] LABS: ALANINE AMINOTRANSFERASE 28 U/L (12-78); ALKALINE PHOSPHATASE 121 U/L (45-117); BILIRUBIN,TOTAL 0.8 mg/dL (0.2-1.0); CREATININE 1.03 mg/dL (0.7-1.3); TOTAL PROTEIN 6.6 g/dL (6.4-8.2); TROPONIN I < 0.015 ng/mL (0.000-0.045)
[2019-10-17] MEDS: HEPARIN 5,000 UNITS/ML, 1ML SQ SCH (05:49)
[2019-10-17] MEDS: OXYcodone IR 5MG TABLET PO PRN ×2 (05:50→13:19)
[2019-10-17] MEDS ORDERED: DEXTROSE 4 GM TAB.CHEW PO PRN (07:00)
[2019-10-17] MEDS ORDERED: GLUCAGON 1 MG IM PRN (07:00)
[2019-10-17] MEDS: INSULIN LISPRO 100 UNITS/ML, PEN SQ-INSULIN SCH ×4 (07:00→21:32)
[2019-10-17] MEDS ORDERED: DEXTROSE 50%, 50ML SYRINGE IVPush PRN (07:00)
[2019-10-17] MEDS: SENNA/DOCUSATE TABLET PO SCH (08:39)
[2019-10-17] MEDS: POTASSIUM CHLORIDE 20 MEQ TAB.ER.PRT PO SCH (08:40)
[2019-10-17] MEDS: BUPROPION SR 150 MG TABLET PO SCH (08:40)
[2019-10-17] MEDS: FUROSEMIDE 40 MG TABLET PO SCH (08:40)
[2019-10-17] MEDS: BACLOFEN 10 MG TABLET PO SCH (08:40)
[2019-10-17] MEDS: PANTOPRAZOLE 20MG TABLET PO SCH (08:40)
[2019-10-17] MEDS: SODIUM CHLORIDE FLUSH 10ML SYR IVF SCH ×4 (08:42→21:49)
[2019-10-17] MEDS: ENOXAPARIN 40 MG/0.4 ML SQ SCH (08:42)
[2019-10-17] MEDS: BUDESONIDE 0.5 MG/2 ML INHA NPPB SCH ×2 (09:00→21:00)
[2019-10-17] MEDS ORDERED: TEMPLATE NON-FORMULARY MED. (Empagliflozin (Jardiance) 10 MG) HOMEMEDPO SCH (09:00)
[2019-10-17] MEDS ORDERED: MORPHINE SULFATE 60 MG HOMEMEDPO SCH (09:00)
[2019-10-17] MEDS ORDERED: ERGOCALCIFEROL 50,000 UNIT CAPSULE PO SCH (09:00)
[2019-10-17] MEDS: HYDROXYCHLOROQUINE 200 MG TABLET PO SCH (10:30)
[2019-10-17 20:15] VITALS: BP 88/46
[2019-10-17] MEDS: NICOTINE 21 MG/24 HR PATCH.TD24 TD SCH (21:33)
[2019-10-17] MEDS: CEFTRIAXONE PMX 1GM/50ML 50 ML IV SCH (21:33)
[2019-10-17] MEDS ORDERED: ALUMINUM/MAG/SIMETHICONE 30 ML UDC PO ONE (22:30)
[2019-10-17] MEDS: AZITHROMYCIN 500 MG in SODIUM CHLORIDE 0.9% 250 ML IV SCH (22:35)
[2019-10-18] MEDS: OXYcodone IR 5MG TABLET PO PRN (02:51)
[2019-10-18] MEDS: ALBUTEROL/IPRATROPIUM 2.5MG/0.5MG, 3 ML NPPB SCH ×3 (03:25→14:25)
[2019-10-18 06:21] LABS: BASOPHILS # (AUTO) 0.01 x10^3/uL (0-0.1); BASOPHILS % (AUTO) 0 % (0-1); EOSINOPHILS % (AUTO) 0 % (1-7); LYMPHOCYTES # (AUTO) 0.77 x10^3/uL (1-3.4); LYMPHOCYTES % (AUTO) 7 % (22-44); MEAN CORPUSCULAR HEMOGLOBIN 30.7 pg (27.5-34.5); MEAN CORPUSCULAR HGB CONC 32.6 g/dL (33.2-36.2); MEAN CORPUSCULAR VOLUME 94.2 fL (81-97); MONOCYTES # (AUTO) 0.62 x10^3/uL (0.2-0.8); MONOCYTES % (AUTO) 6 % (2-9); NEUTROPHILS % (AUTO) 87 % (42-75); PLATELET COUNT 142 x10^3/uL (130-400); RED BLOOD COUNT 4.86 x10^6/uL (4.38-5.82); RED CELL DISTRIBUTION WIDTH 13.6 % (9.4-14.8)
[2019-10-18 06:22] LABS: MD NO
[2019-10-18 06:24] LABS: ALANINE AMINOTRANSFERASE 42 U/L (12-78); ALBUMIN 2.9 g/dL (3.4-5.0); ANION GAP 7 mmol/L (5-15); CALCIUM 8.6 mg/dL (8.5-10.1); CHLORIDE 102 mmol/L (98-107); CREATININE 1.14 mg/dL (0.7-1.3)
[2019-10-18 06:26] LABS: ALKALINE PHOSPHATASE 139 U/L (45-117); BILIRUBIN,TOTAL 0.3 mg/dL (0.2-1.0); TOTAL PROTEIN 6.6 g/dL (6.4-8.2)
[2019-10-18] MEDS: INSULIN LISPRO 100 UNITS/ML, PEN SQ-INSULIN SCH ×3 (07:57→16:11)
[2019-10-18] MEDS: SODIUM CHLORIDE FLUSH 10ML SYR IVF SCH ×2 (07:58→08:30)
[2019-10-18] MEDS: BACLOFEN 10 MG TABLET PO SCH (07:59)
[2019-10-18] MEDS: ENOXAPARIN 40 MG/0.4 ML SQ SCH (07:59)
[2019-10-18] MEDS: BUPROPION SR 150 MG TABLET PO SCH (07:59)
[2019-10-18] MEDS: SENNA/DOCUSATE TABLET PO SCH (08:00)
[2019-10-18] MEDS: SPIRONOLACTONE 25 MG TABLET PO SCH (08:00)
[2019-10-18] MEDS: PANTOPRAZOLE 20MG TABLET PO SCH (08:00)
[2019-10-18] MEDS: FUROSEMIDE 40 MG TABLET PO SCH (08:00)
[2019-10-18] MEDS: GABAPENTIN 300 MG CAPSULE PO SCH (08:01)
[2019-10-18] MEDS: HYDROXYCHLOROQUINE 200 MG TABLET PO SCH (08:01)
[2019-10-18] MEDS: POTASSIUM CHLORIDE 20 MEQ TAB.ER.PRT PO SCH (08:01)
[2019-10-18] MEDS: BUDESONIDE 0.5 MG/2 ML INHA NPPB SCH (09:50)
[2019-10-18 11:21] VITALS: BP 100/59
[2019-10-18 14:01] VITALS: BP 97/59
[2019-10-18] MEDS ORDERED: AZIT500T10 PO (17:20)
[2019-10-19] MEDS ORDERED: AZITHROMYCIN 500 MG TABLET PO SCH (09:00)
[2019-10-19] MEDS ORDERED: INFL100V IV (17:17)
== END 2019-10-18 18:59 | disposition home or self-care (01) | DRG 720 ==
LOC: ED 20:35 → EDIP 20:36 → CCU 23:19 → 3N 10-17 18:04
PROVIDERS: ADMIT Family Medicine; ATTEND Internal Medicine
DX: A41.9 Sepsis, unspecified organism (principal); J96.21 Acute and chronic respiratory failure with hypoxia; N17.9 Acute kidney failure, unspecified; D69.6 Thrombocytopenia, unspecified; J18.9 Pneumonia, unspecified organism; E87.1 Hypo-osmolality and hyponatremia; I27.20 Pulmonary hypertension, unspecified; I50.9 Heart failure, unspecified; F11.20 Opioid dependence, uncomplicated; E11.9 Type 2 diabetes mellitus without complications; E78.5 Hyperlipidemia, unspecified; F17.210 Nicotine dependence, cigarettes, uncomplicated; G47.33 Obstructive sleep apnea (adult) (pediatric); G89.29 Other chronic pain; J44.0 Chronic obstructive pulmonary disease with (acute) lower respiratory infection; J44.1 Chronic obstructive pulmonary disease with (acute) exacerbation; K44.9 Diaphragmatic hernia without obstruction or gangrene; M06.9 Rheumatoid arthritis, unspecified; Z66 Do not resuscitate; Z99.81 Dependence on supplemental oxygen; F32.9 Major depressive disorder, single episode, unspecified
CPT/HCPCS: 36415; 36600; 71045; 80053; 82803; 82962; 83036; 83605; 83735; 83880; 84145; 84484; 85025; 87040; 87070; 87081; 87205; 87400; 93005; 93306; 94640; 96361; 96365; 96368; 96375; 96376; G0378; J0456; J0696; J1644; J1650; J2405; J7620; J7626; J1815; J2270; J2930; J3475; J7030; J7050; J7512

== ENCOUNTER 2019-10-18 23:56 | Inpatient (IN) | payer MEDICAID ==
[~2019-10-18] VITALS: Ht 167.6 cm; Wt 94.1 kg
[~2019-10-18 23:56] MED LIST changes: +AZIT500T10 PO; +MORP30TA PO; +POTA20TA89 PO
--- NOTE | 2019-10-19 | NUR ---
RT IN ROOM AT THIS TIME.
--- NOTE | 2019-10-19 | NUR ---
PT BIB EMS WITH SOB, COUGH. PT D/C FROM [facility] TODAY FROM PNEUMONIA AND COPD EXACERBATION. PT HAD A CIGARETTE AND STARTED HAVING MORE TROUBLE BREATHING. PT TOOK 2 PUFFS OFF ALBUTEROL INHALER WITHOUT RELEIF. EMS PROVIDED PT WITH ALBUTEROL, X2 NEBULIZER TX, 2G MAG, 125MG SOLUMEDROL. BS 124. RR136 ON ADMIT. PT ON 5L OXYMASK AT THIS TIME. MONITORING APPLIED. CALL LIGHT WITHIN REACH, ALL SAFETY MEASURES IN PLACE. FAMIL AT BS FOR SUPPORT.
[2019-10-19] MEDS ORDERED: ALBUTEROL/IPRATROPIUM 2.5MG/0.5MG, 3 ML ONE ×2 (00:04→12:27)
[2019-10-19] MEDS ORDERED: VANCOMYCIN 1,900 MG in SODIUM CHLORIDE 0.9% 250 ML IV ONE (00:30)
[2019-10-19] MEDS ORDERED: CEFEPIME 1 GM in DEXTROSE 5% 50 ML IV ONE (00:30)
[2019-10-19] MEDS ORDERED: VANCOMYCIN PER PHARMACY MC PRN ×2 (00:30→10:00)
--- NOTE | 2019-10-19 01:05 | NUR ---
PT REFUSED OPTIFLO, ERP NOTIFIED.
[2019-10-19 01:39] LABS: BASOPHILS % (AUTO) 0 % (0-1); EOSINOPHILS # (AUTO) 0.02 x10^3/uL (0-0.4); EOSINOPHILS % (AUTO) 0 % (1-7); LYMPHOCYTES # (AUTO) 0.36 x10^3/uL (1-3.4); LYMPHOCYTES % (AUTO) 3 % (22-44); MD NO; MEAN CORPUSCULAR HEMOGLOBIN 30.4 pg (27.5-34.5); MEAN CORPUSCULAR HGB CONC 32.8 g/dL (33.2-36.2); MEAN CORPUSCULAR VOLUME 92.6 fL (81-97); MEAN PLATELET VOLUME 9.6 fL (7.4-10.4); MONOCYTES # (AUTO) 0.77 x10^3/uL (0.2-0.8); MONOCYTES % (AUTO) 7 % (2-9); NEUTROPHILS # (AUTO) 9.63 x10^3/uL (1.8-6.8); NEUTROPHILS % (AUTO) 89 % (42-75); PLATELET COUNT 143 x10^3/uL (130-400); RED BLOOD COUNT 4.72 x10^6/uL (4.38-5.82)
--- NOTE | 2019-10-19 01:50 | NUR ---
PT RESTING ON GURNEY WITH EYE CLOSED. RESPIRATIONS EVEN AND NONLABORED.
[2019-10-19 01:52] LABS: ALANINE AMINOTRANSFERASE 75 U/L (12-78); ANION GAP 6 mmol/L (5-15); CALCIUM 8.4 mg/dL (8.5-10.1); CHLORIDE 101 mmol/L (98-107); CREATININE 1.12 mg/dL (0.7-1.3)
[2019-10-19 01:56] LABS: ALKALINE PHOSPHATASE 149 U/L (45-117); BILIRUBIN,TOTAL 0.5 mg/dL (0.2-1.0); TOTAL PROTEIN 6.4 g/dL (6.4-8.2); TROPONIN I < 0.015 ng/mL (0.000-0.045)
--- NOTE | 2019-10-19 03:05 | NUR ---
PT RESTING ON GURNEY WITH EYES CLOSED. RESPIRATIONS EVEN AND NONLABORED.
--- NOTE | 2019-10-19 04:25 | NUR ---
PT PLACED ON HOSPITAL BED. RECONNECTED TO ALL MONITORING. PT DENIES FURTHER NEEDS AT THIS TIME.
--- NOTE | 2019-10-19 06:58 | NUR ---
REPORT RECEIVED FROM JAI DYKES.
--- NOTE | 2019-10-19 07:25 | NUR ---
cardiac rhythrm strip printed and on chart
--- NOTE | 2019-10-19 07:59 | NUR ---
PT SLEEPING IN HOSPITAL BED. RESPS EVEN AND UNLABORED. ALL MONITORS IN PLACE. CALL LIGHT WITHIN REACH.
--- NOTE | 2019-10-19 08:44 | NUR ---
MOUTH SWAB GIVEN PER PT'S REQUEST AT THIS TIME. PT'S AT BEDSIDE.
--- NOTE | 2019-10-19 09:53 | NUR ---
DIET TRAY ORDERED AT THIS TIME.
[2019-10-19] MEDS ORDERED: Empagliflozin (Jardiance) 10 MG) PO SCH (10:00)
[2019-10-19] MEDS ORDERED: BISACODYL 10 MG SUPP PR PRN (10:00)
[2019-10-19] MEDS ORDERED: POLYETHYLENE GLYCOL 17 GM PACKET PO PRN (10:00)
[2019-10-19] MEDS ORDERED: ONDANSETRON 2MG/ML, 2ML IVPush PRN (10:00)
[2019-10-19] MEDS ORDERED: ACETAMINOPHEN 325 MG TABLET PO PRN (10:00)
[2019-10-19] MEDS ORDERED: PROMETHAZINE 25 MG/ML, 1ML IM PRN (10:00)
[2019-10-19] MEDS ORDERED: OXYcodone IR 5MG TABLET PO PRN (10:00)
[2019-10-19] MEDS ORDERED: DOCUSATE 100 MG CAPSULE PO PRN (10:00)
[2019-10-19] MEDS ORDERED: hydrALAzine 20 MG/ML, 1ML IVPush PRN (10:00)
[2019-10-19] MEDS ORDERED: ONDANSETRON ODT 4 MG PO PRN (10:00)
[2019-10-19 10:27] LABS: FREE T4 (FREE THYROXINE) 1.78 ng/dL (0.76-1.46)
[2019-10-19] MEDS ORDERED: ENOXAPARIN 40 MG/0.4 ML ONE (10:29)
[2019-10-19] MEDS ORDERED: METRONIDAZOLE PMX 500MG/100ML 100 ML ONE (10:29)
[2019-10-19] MEDS ORDERED: INSULIN LISPRO SINGLE DOSE, ER SQ-INSULIN ONE (10:30)
[2019-10-19] MEDS ORDERED: PHARMACOKINETIC MONITORING MC PRN (10:30)
[2019-10-19] MEDS ORDERED: FUROSEMIDE 20 MG TABLET ONE (10:30)
--- NOTE | 2019-10-19 10:32 | NUR ---
MEDICATIONS ORDERED FROM PHARMACY AT THIS TIME.
--- NOTE | 2019-10-19 10:32 | NUR ---
MEAL TRAY PROVIDED AT THIS TIME.
[2019-10-19] MEDS ORDERED: OMNIPAQUE 350 MG/ML, 100ML BOTTLE ONE (10:37)
[2019-10-19] MEDS: METRONIDAZOLE PMX 500MG/100ML 100 ML IV SCH ×2 (10:40→20:48)
[2019-10-19] MEDS: FUROSEMIDE 40 MG TABLET PO SCH (10:40)
[2019-10-19] MEDS: ENOXAPARIN 40 MG/0.4 ML SQ SCH (10:41)
--- NOTE | 2019-10-19 10:45 | NUR ---
pt medicated per emar. pt tolerated well. abx infusing at this time.
[2019-10-19] MEDS: OXYcodone IR 5MG TABLET PO SCH ×3 (11:00→20:53)
[2019-10-19] MEDS: GABAPENTIN 300 MG CAPSULE PO SCH ×2 (11:00→20:54)
--- NOTE | 2019-10-19 11:12 | NUR ---
PT AMB TO BR WITH STEADY GAIT.
[2019-10-19] MEDS: BUPROPION SR 150 MG TABLET PO SCH (11:24)
[2019-10-19] MEDS: BACLOFEN 10 MG TABLET PO SCH (11:24)
[2019-10-19] MEDS: HYDROXYCHLOROQUINE 200 MG TABLET PO SCH (11:24)
[2019-10-19] MEDS: PANTOPROZOLE 40MG TABLET PO SCH (11:24)
--- NOTE | 2019-10-19 11:26 | NUR ---
PT MEDICATED PER EMAR. PT TOLERATED WELL.
--- NOTE | 2019-10-19 11:40 | NUR ---
MEAL TRAY ORDERED AT THIS TIME.
--- NOTE | 2019-10-19 11:50 | NUR ---
BG 230 AT THIS TIME.
[2019-10-19] MEDS: INSULIN LISPRO 100 UNITS/ML, PEN SQ-INSULIN SCH ×3 (11:59→20:54)
[2019-10-19] MEDS: metFORMIN 500 MG TABLET PO SCH ×2 (12:00→17:00)
--- NOTE | 2019-10-19 12:00 | NUR ---
4 units of insulin lispro given d/t bg 230. pt tolerated well.
--- NOTE | 2019-10-19 12:11 | NUR ---
LUNCH TRAY PROVIDED AT THIS TIME.
--- NOTE | 2019-10-19 12:28 | NUR ---
RT AT BEDSIDE AT THIS TIME.
--- NOTE | 2019-10-19 13:42 | NUR ---
MEDICATIONS ORDERED FROM PHARMACY.
--- NOTE | 2019-10-19 14:18 | NUR ---
REPORT GIVEN TO SUGAR DYKES. ALL QUESTIONS ANSWERED.
[2019-10-19] MEDS ORDERED: ALBUTEROL/IPRATROPIUM 2.5MG/0.5MG, 3 ML NPPB SCH ×2 (15:00→15:30)
[2019-10-19 15:08] VITALS: BP 108/62
[2019-10-19] MEDS: SALMETEROL INH SCH (16:11)
[2019-10-19] MEDS: Tiotropium Bromide** (Spiriva**) 18 MCG) INH SCH (16:11)
[2019-10-19] MEDS: FLUTICASONE INH SCH (16:11)
[2019-10-19] MEDS: CEFEPIME 1 GM in DEXTROSE 5% 50 ML IV SCH (16:22)
[2019-10-19] MEDS ORDERED: INFL100V IV (17:17)
[2019-10-19 18:47] VITALS: BP 104/62
[2019-10-19] MEDS: BUDESONIDE 0.5 MG/2 ML INHA NPPB SCH (19:28)
[2019-10-19] MEDS: ALBUTEROL/IPRATROPIUM 2.5MG/0.5MG, 3 ML NPPB SCH (19:29)
[2019-10-19] MEDS: PRAVASTATIN 20 MG TABLET PO SCH (20:54)
[2019-10-20 02:00] VITALS: BP 99/60
[2019-10-20 02:17] VITALS: BP 101/60
[2019-10-20] MEDS: MORPHINE SULFATE 4 MG/ML, 1ML IVPush PRN ×2 (02:33→09:00)
[2019-10-20] MEDS: VANCOMYCIN 1,900 MG in SODIUM CHLORIDE 0.9% 250 ML IV SCH (02:34)
[2019-10-20] MEDS: ALBUTEROL/IPRATROPIUM 2.5MG/0.5MG, 3 ML NPPB SCH ×5 (02:49→19:55)
[2019-10-20] MEDS: CEFEPIME 1 GM in DEXTROSE 5% 50 ML IV SCH ×2 (04:45→16:47)
[2019-10-20] MEDS: METRONIDAZOLE PMX 500MG/100ML 100 ML IV SCH (05:32)
[2019-10-20 05:37] LABS: MEAN CORPUSCULAR HEMOGLOBIN 30.6 pg (27.5-34.5); MEAN CORPUSCULAR HGB CONC 32.5 g/dL (33.2-36.2); MEAN PLATELET VOLUME 9.1 fL (7.4-10.4); PLATELET COUNT 149 x10^3/uL (130-400); RED BLOOD COUNT 4.52 x10^6/uL (4.38-5.82); RED CELL DISTRIBUTION WIDTH 14.2 % (9.4-14.8)
[2019-10-20 05:41] LABS: ALANINE AMINOTRANSFERASE 79 U/L (12-78); ALBUMIN 2.5 g/dL (3.4-5.0); ANION GAP 6 mmol/L (5-15); CALCIUM 8.1 mg/dL (8.5-10.1); CHLORIDE 105 mmol/L (98-107); CHOLESTEROL, TOTAL 133 mg/dL (140-239); CREATININE 0.96 mg/dL (0.7-1.3)
[2019-10-20 05:43] LABS: ALKALINE PHOSPHATASE 119 U/L (45-117); BILIRUBIN,TOTAL 0.5 mg/dL (0.2-1.0); CHOL/HDL RATIO 3.7; HDL CHOL % 27 % (26-37); HDL CHOLESTEROL (DIRECT) 36 mg/dL (40-60); LDL CHOLESTEROL,CALCULATED 79 mg/dL (54-169); LDL/HDL RATIO 2.2 (0.5-3.0); TOTAL PROTEIN 5.7 g/dL (6.4-8.2); TRIGLYCERIDES 89 mg/dL (50-200); VLDL CHOLESTEROL 18 mg/dL (0-25)
[2019-10-20] MEDS: OXYcodone IR 5MG TABLET PO SCH ×4 (06:00→20:41)
[2019-10-20 06:10] LABS: MD SCAN
[2019-10-20 06:13] LABS: BASOPHILS # (AUTO) 0.05 x10^3/uL (0-0.1); BASOPHILS % (AUTO) 0 % (0-1); EOSINOPHILS # (AUTO) 0.07 x10^3/uL (0-0.4); EOSINOPHILS % (AUTO) 1 % (1-7); LYMPHOCYTES # (AUTO) 1.33 x10^3/uL (1-3.4); LYMPHOCYTES % (AUTO) 11 % (22-44); MONOCYTES # (AUTO) 1.26 x10^3/uL (0.2-0.8); MONOCYTES % (AUTO) 10 % (2-9); NEUTROPHILS # (AUTO) 9.95 x10^3/uL (1.8-6.8); NEUTROPHILS % (AUTO) 79 % (42-75)
[2019-10-20 06:55] VITALS: BP 92/50
[2019-10-20] MEDS: INSULIN LISPRO 100 UNITS/ML, PEN SQ-INSULIN SCH ×4 (07:00→20:41)
[2019-10-20] MEDS: BUDESONIDE 0.5 MG/2 ML INHA NPPB SCH ×2 (07:59→19:55)
[2019-10-20] MEDS: GABAPENTIN 300 MG CAPSULE PO SCH ×2 (08:36→20:41)
[2019-10-20] MEDS: BACLOFEN 10 MG TABLET PO SCH (08:36)
[2019-10-20] MEDS: BUPROPION SR 150 MG TABLET PO SCH (08:36)
[2019-10-20] MEDS: metFORMIN 500 MG TABLET PO SCH ×2 (08:36→16:48)
[2019-10-20] MEDS: PANTOPROZOLE 40MG TABLET PO SCH (08:36)
[2019-10-20] MEDS: FUROSEMIDE 40 MG TABLET PO SCH (08:37)
[2019-10-20] MEDS: NICOTINE 21 MG/24 HR PATCH.TD24 TD SCH (09:00)
[2019-10-20] MEDS: ERGOCALCIFEROL 50,000 UNIT CAPSULE PO SCH ×2 (09:00→11:59)
[2019-10-20] MEDS: SALMETEROL INH SCH (09:00)
[2019-10-20] MEDS: HYDROXYCHLOROQUINE 200 MG TABLET PO SCH (09:00)
[2019-10-20] MEDS: Empagliflozin (Jardiance) 10 MG) PO SCH (09:00)
[2019-10-20] MEDS: FLUTICASONE INH SCH (09:00)
[2019-10-20] MEDS: Tiotropium Bromide** (Spiriva**) 18 MCG) INH SCH (09:00)
[2019-10-20] MEDS: ENOXAPARIN 40 MG/0.4 ML SQ SCH (11:42)
[2019-10-20 12:01] VITALS: BP 106/62
[2019-10-20 20:37] VITALS: BP 108/57
[2019-10-20] MEDS: PRAVASTATIN 20 MG TABLET PO SCH (20:40)
[2019-10-21] MEDS: ERGOCALCIFEROL MC SCH ×3 (00:30→15:45)
[2019-10-21 00:38] VITALS: BP 108/66
[2019-10-21] MEDS: VANCOMYCIN 1,900 MG in SODIUM CHLORIDE 0.9% 250 ML IV SCH (02:04)
[2019-10-21] MEDS: ALBUTEROL/IPRATROPIUM 2.5MG/0.5MG, 3 ML NPPB SCH ×3 (03:00→15:43)
[2019-10-21] MEDS: CEFEPIME 1 GM in DEXTROSE 5% 50 ML IV SCH ×2 (03:59→15:45)
[2019-10-21] MEDS: OXYcodone IR 5MG TABLET PO SCH ×3 (07:15→16:11)
[2019-10-21] MEDS: INSULIN LISPRO 100 UNITS/ML, PEN SQ-INSULIN SCH ×3 (07:28→16:11)
[2019-10-21] MEDS: SALMETEROL INH SCH (08:46)
[2019-10-21] MEDS: FLUTICASONE INH SCH (08:46)
[2019-10-21] MEDS: Tiotropium Bromide** (Spiriva**) 18 MCG) INH SCH (08:47)
[2019-10-21] MEDS: Empagliflozin (Jardiance) 10 MG) PO SCH (08:47)
[2019-10-21] MEDS: GABAPENTIN 300 MG CAPSULE PO SCH (08:49)
[2019-10-21] MEDS: BUPROPION SR 150 MG TABLET PO SCH (08:49)
[2019-10-21] MEDS: FUROSEMIDE 40 MG TABLET PO SCH (08:49)
[2019-10-21] MEDS: HYDROXYCHLOROQUINE 200 MG TABLET PO SCH (08:49)
[2019-10-21] MEDS: BACLOFEN 10 MG TABLET PO SCH (08:50)
[2019-10-21] MEDS: PANTOPROZOLE 40MG TABLET PO SCH (08:50)
[2019-10-21] MEDS: metFORMIN 500 MG TABLET PO SCH ×2 (08:50→16:11)
[2019-10-21] MEDS: NICOTINE 21 MG/24 HR PATCH.TD24 TD SCH (08:51)
[2019-10-21 08:53] VITALS: BP 95/58
[2019-10-21] MEDS: BUDESONIDE 0.5 MG/2 ML INHA NPPB SCH (09:59)
[2019-10-21] MEDS: ENOXAPARIN 40 MG/0.4 ML SQ SCH (10:50)
[2019-10-21] MEDS: ERGOCALCIFEROL 50,000 UNIT CAPSULE PO SCH (10:51)
[2019-10-21] MEDS ORDERED: ERGO500017 PO (11:35)
[2019-10-21] MEDS ORDERED: DOXY100C2 PO (14:54)
[2019-10-21] MEDS ORDERED: NICO-487 TD (14:54)
[2019-10-21] MEDS ORDERED: LEVO750T26 PO (14:54)
[2019-10-21] MEDS ORDERED: PRED20TA PO (14:56)
== END 2019-10-21 16:25 | disposition home or self-care (01) | DRG 133 ==
LOC: ED 10-19 02:50 → EDIP 10-19 03:02 → 4WST 10-19 15:11
PROVIDERS: ADMIT Family Medicine; ATTEND Family Medicine
DX: J96.21 Acute and chronic respiratory failure with hypoxia (principal); J18.9 Pneumonia, unspecified organism; E87.2 Acidosis; I11.0 Hypertensive heart disease with heart failure; I27.20 Pulmonary hypertension, unspecified; F11.20 Opioid dependence, uncomplicated; I50.32 Chronic diastolic (congestive) heart failure; J44.1 Chronic obstructive pulmonary disease with (acute) exacerbation; J44.0 Chronic obstructive pulmonary disease with (acute) lower respiratory infection; E11.9 Type 2 diabetes mellitus without complications; E78.5 Hyperlipidemia, unspecified; F17.210 Nicotine dependence, cigarettes, uncomplicated; F32.9 Major depressive disorder, single episode, unspecified; G47.33 Obstructive sleep apnea (adult) (pediatric); G89.29 Other chronic pain; Y95 Nosocomial condition; M06.9 Rheumatoid arthritis, unspecified; Z87.01 Personal history of pneumonia (recurrent); Z91.19 Patient's noncompliance with other medical treatment and regimen; Z99.81 Dependence on supplemental oxygen
CPT/HCPCS: 36415; 36600; 71045; 71275; 80053; 80061; 82803; 82962; 83036; 83605; 83735; 83880; 84145; 84439; 84443; 84484; 85025; 87040; 87205; 93005; 94640; 96365; 96366; 96367; G0378; J0692; J1650; J3370; J7620; J7626; Q9967; J1815; J2270; J7050; J7512